=== PATIENT | female | born 1955 | race Caucasian/White ===

== ENCOUNTER 2023-12-23 15:12 | Emergency (ER) | payer OTHER ==
[~2023-12-23] VITALS: Ht 162.6 cm; Wt 74.8 kg
[2023-12-23 15:12] VITALS: BP_SYST 116; PULSE 63; RESP 19; TEMP 98.6; O2SAT 100
[2023-12-23] MEDS: HYDROcodone/ACETAMIN 5-325 MG TAB (NORCO/ VICODIN) PO ONE (16:30)
[2023-12-23] MEDS ORDERED: HYDR-3917 PO (17:22)
[2023-12-23] MEDS ORDERED: AUG875 PO (17:22)
[2023-12-23] MEDS: KETOROLAC TROMETHAMINE 30 MG VIAL IM ONE (17:40)
[2023-12-23 17:47] VITALS: BP_SYST 116; PULSE 63; RESP 19; TEMP 98.6; O2SAT 100
== END 2023-12-23 17:46 | disposition home or self-care (01) ==
LOC: SED 15:12
DX: S82.431A Displaced oblique fracture of shaft of right fibula, initial encounter for closed fracture (principal); S90.411A Abrasion, right great toe, initial encounter; W01.0XXA Fall on same level from slipping, tripping and stumbling without subsequent striking against object, initial encounter; Y93.89 Activity, other specified; Y92.89 Other specified places as the place of occurrence of the external cause; Y99.8 Other external cause status
CPT/HCPCS: 99284; 29515; 73610; 73630; 96372; J1885